=== PATIENT | male | born 1975 | race Asian ===

== ENCOUNTER 2019-06-08 21:27 | Emergency (ER) | payer MEDICAID ==
[~2019-06-08] VITALS: Ht 160 cm; Wt 72.6 kg
[2019-06-08 21:54] VITALS: BP_SYST 124
--- NOTE | 2019-06-08 21:58 | NUR ---
Patient triaged and placed in waiting room. VSS and patient appears in no acute distress at this time. Accompanied by self, awaiting available bed, and MD notified of need for MSE. Patient brought in by self complaining of right eye lid swelling with blurred vision and headache. Pain 9/10. Patient denies any eye discharge, fever or trauma. Pain 9/10. Will give report to accepting RN at time of bed placement.
--- NOTE | 2019-06-08 23:24 | NUR ---
Patient to [facility] for evaluation. Side rails up.
--- NOTE | 2019-06-08 23:42 | NUR ---
Patient brought in complaining of right eye lid swelling and headache x 3 days. Pain 6/10. No other complaints/injuries per patient or as noted. Will continue to monitor.
--- NOTE | 2019-06-09 00:25 | NUR ---
ER Dr. Belcher at bedside examining patient.
[2019-06-09] MEDS ORDERED: IBUPROFEN 600 MG TABLET PO ONE (00:30)
[2019-06-09 00:44] VITALS: BP_SYST 118
--- NOTE | 2019-06-09 00:44 | NUR ---
Patient given written and verbal discharge instructions and verbalizes understanding. ER MD discussed with patient the results and treatment provided. Patient in stable condition. ID arm band removed. Rx of Motrin and Keflex given. Patient educated on pain management and to follow up with PMD. Pain Scale 0/10 Opportunity for questions provided and answered. Medication side effect fact sheet provided.
== END 2019-06-09 00:44 | disposition home or self-care (01) ==
LOC: SED 21:27
DX: H01.001 Unspecified blepharitis right upper eyelid (principal); F17.290 Nicotine dependence, other tobacco product, uncomplicated
CPT/HCPCS: 99283

== ENCOUNTER 2019-06-25 12:07 | Emergency (ER) | payer MEDICAID ==
[~2019-06-25] VITALS: Ht 160 cm; Wt 56.7 kg
[2019-06-25 12:57] VITALS: BP_SYST 112
--- NOTE | 2019-06-25 14:19 | NUR ---
Called pt x 1 to bring him to room , no answer
--- NOTE | 2019-06-25 14:21 | NUR ---
Patient to ER bed 08 to gown for evaluation. Side rails up.
--- NOTE | 2019-06-25 14:23 | NUR ---
Patient arrived via POV, AAOx4, and ambulatory with steady gait. Patient c/c of right eye pain. Patient states years ago, he had surgery. He notes pain to right eyebrow region. Right eye lid swelling present. Patient states headache pain 3-4/10. Patient states no nausea, vomiting, sore throat, or dizziness. No changes in vision or blurred vision. Will continue to follow up and monitor.
[2019-06-25] MEDS ORDERED: NACL 0.9% 1,000 ML IV ONE (14:28)
--- NOTE | 2019-06-25 14:28 | NUR ---
ER at bedside examining patient.
[2019-06-25] MEDS ORDERED: KETOROLAC TROMETHAMINE 30 MG VIAL IVP ONE (14:30)
[2019-06-25 15:28] LABS: BASOPHILS # (AUTO) 0.1 K/uL (0.0-0.2); EOSINOPHILS # (AUTO) 0.3 K/uL (0.0-0.4); EOSINOPHILS % (AUTO) 4.7 % (0.0-4.0); HEMATOCRIT 46.8 % (36-54); HEMOGLOBIN 15.7 g/dL (14.0-18.0); LYMPHOCYTES # (AUTO) 2.5 K/uL (1.0-5.5); MEAN CORPUSCULAR HEMOGLOBIN 30 pg (27-31); MEAN CORPUSCULAR HGB CONC 34 % (32-36); MEAN CORPUSCULAR VOLUME 90 fL (79.0-98.0); MONOCYTES # (AUTO) 0.5 K/uL (0.0-1.0); MONOCYTES % (AUTO) 7.7 % (1.7-9.3); NEUTROPHILS # (AUTO) 2.5 K/uL (1.8-7.7); NEUTROPHILS % (AUTO) 43.6 % (40.0-70.0); PLATELET COUNT (AUTO) 349 K/uL (130-430); RED BLOOD CELL COUNT(AUTO) 5.21 MIL/uL (4.2-6.2); RED CELL DISTRIBUTION WIDTH 13.3 % (9.0-15.0); WHITE BLOOD COUNT (AUTO) 5.8 K/uL (4.8-10.8)
[2019-06-25 15:54] LABS: CALCIUM 8.3 mg/dL (8.4-11.0); CREATININE 0.9 mg/dL (0.55-1.30); POTASSIUM 4.3 mmol/L (3.5-5.1)
[2019-06-25 15:59] LABS: TOTAL BILIRUBIN 0.5 mg/dL (0.0-1.0)
--- NOTE | 2019-06-25 16:05 | NUR ---
spoke to Rylee Madrigal Wharfmaster, stated that pt does not need to be trasnferred. Updated CM regarding pt about having to trasnfer due to higher level of care. Referred to call [facility] and CM will try and find placement as well.
--- NOTE | 2019-06-25 16:14 | NUR ---
Spoke with Kaitlin at [facility] regarding transfer. Per Kaitlin she is trying to see if [facility] or [facility] have an ENT for consult.
--- NOTE | 2019-06-25 17:00 | NUR ---
Patient states he would like to leave, patient states he is concerned regarding his job. Patient aware he needs to follow up with a specialist related to the mass above his right eye, and risk of losing his eye as presented by Dr. Pike. Patient states he would like to leave in time to get to his shift for work tonight.
[2019-06-25 17:07] LABS: BILIRUBIN,URINE NEGATIVE (NEGATIVE); BLOOD, URINE NEGATIVE (NEGATIVE); CLARITY/URINE CLEAR (CLEAR); COLOR,URINE YELLOW (YELLOW); GLUCOSE,URINE NEGATIVE (NEGATIVE); KETONES,URINE NEGATIVE (NEGATIVE); LEUKOCYTE ESTERASE ,URINE NEGATIVE (NEGATIVE); NITRITE, URINE NEGATIVE (NEGATIVE); PROTEIN URINE NEGATIVE (NEGATIVE); UROBILINOGEN,URINE 0.2 (0.2-1.0)
--- NOTE | 2019-06-25 17:44 | NUR ---
Dr. Pike spoke with Dr. Culp via phone. Patient will not need to stay. Encouraged to follow up. I spoke with patient regarding finding a PCP, I showed him the number on the back of his insurance card to call for PCP and appointment, and that he would need to go there first then ask for a referrel to specialist. Patient verbalized understanding. MD to get discharge paperwork together. Will continue to follow up and monitor.
[2019-06-25 18:00] VITALS: BP_SYST 112
--- NOTE | 2019-06-25 18:00 | NUR ---
Patient given written and verbal discharge instructions and verbalizes understanding. ER MD discussed with patient the results and treatment provided. Patient in stable condition. ID arm band removed. IV catheter removed intact and dressing applied, no active bleeding. Rx of Tylenol with Codiene #3, Bactrim DS given. Patient educated on pain management and to follow up with PMD. Pain Scale 2/10. Opportunity for questions provided and answered. Medication side effect fact sheet provided.
== END 2019-06-25 18:00 | disposition home or self-care (01) ==
LOC: SED 12:07
DX: J32.9 Chronic sinusitis, unspecified (principal); J34.89 Other specified disorders of nose and nasal sinuses; R22.0 Localized swelling, mass and lump, head; F17.210 Nicotine dependence, cigarettes, uncomplicated
CPT/HCPCS: 36415; 70486; 80053; 81003; 83605; 85025; 87040; 96374; 99284; J1885; J7030

== ENCOUNTER 2019-07-11 18:46 | Emergency (ER) | payer MEDICAID ==
[~2019-07-11] VITALS: Ht 160 cm; Wt 54.4 kg
[2019-07-11 19:03] VITALS: BP_SYST 108
--- NOTE | 2019-07-12 00:30 | NUR ---
Called pt in, no answer
--- NOTE | 2019-07-12 00:30 | NUR ---
CALLED PT IN X 2, NO ANSWER
--- NOTE | 2019-07-12 00:30 | NUR ---
Patient left without being seen. No further treatment provided. ER MD aware
== END 2019-07-12 00:30 | disposition left against medical advice (07) ==
LOC: SED 18:46
DX: S05.90XA Unspecified injury of unspecified eye and orbit, initial encounter (principal); Z53.21 Procedure and treatment not carried out due to patient leaving prior to being seen by health care provider; X58.XXXA Exposure to other specified factors, initial encounter; Y93.89 Activity, other specified; Y92.89 Other specified places as the place of occurrence of the external cause; Y99.8 Other external cause status

== ENCOUNTER 2019-07-12 08:15 | Emergency (ER) | payer MEDICAID ==
[~2019-07-12] VITALS: Ht 160 cm; Wt 54.4 kg
[2019-07-12 08:27] VITALS: BP_SYST 132
--- NOTE | 2019-07-12 08:30 | NUR ---
Patient to ER bed 06 to gown for evaluation. Side rails up. Report given to SHANKAR Huang.
--- NOTE | 2019-07-12 08:40 | NUR ---
pt arrives from home w/ c/o right eye bump/mass x 1 month. Pt denies any drainage from the right eye. Pt also c/o left neck pain/bump for one week.
--- NOTE | 2019-07-12 09:08 | NUR ---
CARA Willingham at bedside examining patient.
--- NOTE | 2019-07-12 09:48 | NUR ---
Patient transported to radiology via gurney, accompanied by director radiation oncology.
--- NOTE | 2019-07-12 10:05 | NUR ---
pt returned from CT scan
[2019-07-12 11:07] LABS: HEMATOCRIT 45.3 % (36-54); HEMOGLOBIN 15.2 g/dL (14.0-18.0); MEAN CORPUSCULAR HEMOGLOBIN 30 pg (27-31); MEAN CORPUSCULAR HGB CONC 34 % (32-36); MEAN CORPUSCULAR VOLUME 89 fL (79.0-98.0); PLATELET COUNT (AUTO) 253 K/uL (130-430); RED BLOOD CELL COUNT(AUTO) 5.07 MIL/uL (4.2-6.2); RED CELL DISTRIBUTION WIDTH 13.4 % (9.0-15.0)
[2019-07-12 11:20] LABS: CALCIUM 8.4 mg/dL (8.4-11.0); CREATININE 0.86 mg/dL (0.55-1.30); POTASSIUM 3.9 mmol/L (3.5-5.1)
--- NOTE | 2019-07-12 11:20 | NUR ---
spoke w/ Rob Gillis. Unable to accept the pt.
[2019-07-12 11:35] LABS: ALBUMIN 3.6 g/dL (3.4-4.8); TOTAL BILIRUBIN 0.2 mg/dL (0.0-1.0)
[2019-07-12 11:51] LABS: ATYPICAL LYMPHOCYTES % 5 % (0-0); BAND % (MANUAL) 4 % (0-6); BASOPHILS % (MANUAL) 0 % (0-2); EOSINOPHILS % (MANUAL) 6 % (0-7); LYMPHOCYTES % (MANUAL) 46 % (20-46); MONOCYTES % (MANUAL) 6 % (0-11)
--- NOTE | 2019-07-12 12:00 | NUR ---
Urine sample collected and sent to the lab.
--- NOTE | 2019-07-12 12:10 | NUR ---
# 18 gauge angiocath placed to LAC. Use of asceptic technique. Opsite placed over site. Blood return noted. Blood for lab drawn from site. Flushed with 10 cc of normal saline. No evidence of infiltration noted. Patient tolerated well.
[2019-07-12 13:00] LABS: BILIRUBIN,URINE NEGATIVE (NEGATIVE); BLOOD, URINE NEGATIVE (NEGATIVE); CLARITY/URINE CLEAR (CLEAR); COLOR,URINE YELLOW (YELLOW); GLUCOSE,URINE NEGATIVE (NEGATIVE); KETONES,URINE NEGATIVE (NEGATIVE); LEUKOCYTE ESTERASE ,URINE NEGATIVE (NEGATIVE); NITRITE, URINE NEGATIVE (NEGATIVE); PROTEIN URINE NEGATIVE (NEGATIVE); UROBILINOGEN,URINE 0.2 (0.2-1.0)
--- NOTE | 2019-07-12 15:10 | NUR ---
Spoke to Werner miguel [facility] placement center for the third time. Pt still does not have a bed available.
[2019-07-12] MEDS ORDERED: NACL 0.9% 1,000 ML IV ONE ×2 (15:45→17:30)
--- NOTE | 2019-07-12 16:15 | NUR ---
IV fluids currently infusing per MD order.
--- NOTE | 2019-07-12 17:58 | NUR ---
Currently infusing 2nd liter of NS per MD order.
--- NOTE | 2019-07-12 19:06 | NUR ---
pt will be accepted to [facility], bed is pending
--- NOTE | 2019-07-12 19:16 | NUR ---
Care endorsed to Saroj CHAPARRO.
--- NOTE | 2019-07-12 20:11 | NUR ---
Pt updated regarding Transfer to [facility], Pt remains in stable condition
--- NOTE | 2019-07-12 21:30 | NUR ---
PT STATED, I FEEL OK RIGHT NOW. VSS REMAINS IN STABLE CONDITION
--- NOTE | 2019-07-12 23:15 | NUR ---
VSS NO S/S OF ACUTE DISTRESS, AWAITING [facility] BED ASSIGNMENT
--- NOTE | 2019-07-13 00:15 | NUR ---
DR. SINGH BEDSIDE FOR PT UPDATE
--- NOTE | 2019-07-13 01:20 | NUR ---
VSS, asleep on gurney with rails up
--- NOTE | 2019-07-13 02:30 | NUR ---
Pt stated he is feeling a bit better
--- NOTE | 2019-07-13 03:34 | NUR ---
VSS no s/s of acute distress. Resting on gurney rails up
--- NOTE | 2019-07-13 04:41 | NUR ---
Pt remains in stable condition, asleep on gurblount rails up
--- NOTE | 2019-07-13 05:45 | NUR ---
Updated Pt on transfer situation to [facility]; still awaiting bed assignment
--- NOTE | 2019-07-13 06:39 | NUR ---
Spoke to Rylee [facility] Case Manager, at this time no beds available but beds should be able to clear up at shift change.
--- NOTE | 2019-07-13 07:06 | NUR ---
Report received from SHANKAR Fernando for continuation of care.
--- NOTE | 2019-07-13 09:29 | NUR ---
spoke to Nuvia, [facility] case manager, about update on bed. no bed availablity at this time, but nuvia said she would call and follow up with [facility]. Nuvia: [phone]
--- NOTE | 2019-07-13 10:05 | NUR ---
PT FOUND BY SECURITY IN FRONT OF HOSPITAL SMOKING, PT ASKED TO RETURN TO ER MIMI
--- NOTE | 2019-07-13 10:10 | NUR ---
Patient educated that this is a non-smoking facility and that he can not leave the ER to use the bathroom in the ER waiting room. Patient verbalized understanding.
--- NOTE | 2019-07-13 10:46 | NUR ---
still no bed assignment at this time. the coordinator will call back regarding bed assignment. stated they will call within the hour for update.
--- NOTE | 2019-07-13 11:30 | NUR ---
Patient is in bed talking on his phone.
--- NOTE | 2019-07-13 12:30 | NUR ---
Patientis sleeping in bed. No signs or symptoms of distress noted.
--- NOTE | 2019-07-13 14:30 | NUR ---
Patientis sleeping in bed. No signs or symptoms of distress noted.
--- NOTE | 2019-07-13 14:40 | NUR ---
Dr. Cornejo in to talk to patient.
--- NOTE | 2019-07-13 16:19 | NUR ---
[facility] CALLED STATING THEY MAY HAVE AN OPENING FOR PT. WILL CALL BACK FOR CONFIRMATION
--- NOTE | 2019-07-13 16:30 | NUR ---
Patient is on his phone. No signs or symptoms of distress noted.
--- NOTE | 2019-07-13 18:16 | NUR ---
Patient to restroom.
--- NOTE | 2019-07-13 18:39 | NUR ---
Patient back to [facility].
--- NOTE | 2019-07-13 19:14 | NUR ---
Report given to SHANKAR Wilks for continuation of care.
--- NOTE | 2019-07-13 19:16 | NUR ---
Patient report received from SHANKAR Styles. Endorsed to me that patient is awaiting transfer, accepted at [facility], no bed available. Will review orders, results, and notes. Will continue to follow up and monitor.
--- NOTE | 2019-07-13 20:16 | NUR ---
Patient resting comfortably, needs are met at this time. Patient states he is having no pain. Will continue to follow up and monitor.
--- NOTE | 2019-07-14 00:32 | NUR ---
Patient resting comfortably. Needs are met at this time. Patient calm and cooperative. Will continue to follow up and monitor.
--- NOTE | 2019-07-14 02:30 | NUR ---
Patient resting comfortably, needs are met at this time. Encouraged to let us know if needs arise. Will continue to follow up and monitor.
--- NOTE | 2019-07-14 03:07 | NUR ---
Patient report given to SHANKAR Kay.
--- NOTE | 2019-07-14 05:30 | NUR ---
Patient resting quietly. No acute distress noted. Vital signs within normal range.
--- NOTE | 2019-07-14 07:18 | NUR ---
[facility] called regarding pt status. spoke to johnny call transferred to to speak to the attending doc at [facility].
--- NOTE | 2019-07-14 07:28 | NUR ---
Patient resting in bed, denies any SOB or pain. No signs or symptoms of acute distress noted.
--- NOTE | 2019-07-14 07:30 | NUR ---
Patient sitting up in bed, on his phone. Patient denies any SOB or pain. No signs or symptoms of acute distress noted.
--- NOTE | 2019-07-14 08:31 | NUR ---
Spoke to Chase, [employer] Representative, asked if pt is still present in ED and updated CM on pt status. Chase stated he will speak to the coordinator regarding pt transfer because pt has not received bed assignment.
--- NOTE | 2019-07-14 09:30 | NUR ---
Patient resting in bed, eating. Patient denies any SOB or pain. No signs or symptoms of acute distress noted.
--- NOTE | 2019-07-14 09:32 | NUR ---
Spoke to Rylee Pedersen Grip Wrapper, stated they will attempt to try and contact the attending at [facility] and will call back.
--- NOTE | 2019-07-14 11:30 | NUR ---
Patient resting in bed, sleeping. Patient denies any SOB or pain. No signs or symptoms of acute distress noted.
--- NOTE | 2019-07-14 13:33 | NUR ---
Patient sleeping in bed, symmetrical rise and fall of chest. Patient denies any SOB or pain. No signs or symptoms of acute distress noted.
--- NOTE | 2019-07-14 15:00 | NUR ---
Patient resting in bed, denies any SOB or pain.
--- NOTE | 2019-07-14 17:08 | NUR ---
Patient sitting up in bed, talking on the phone, denies any SOB or pain.
--- NOTE | 2019-07-14 17:45 | NUR ---
Patient to be transferred to [facility]. Is being transferred due to higher level of care. Receiving facility has accepting physician and available space. ER physician has signed transfer form. Patient or responsible republican has agreed to transfer and signed form. Patient belongings inventoried and will be sent with patient. Copy of nursing notes, lab reports, EKG, Physicians Orders and X-rays to be sent with patient. Report called to July CHAPARRO at receiving facility. Receiving physician is Dr. Davis. [facility] has been called for transfer. ETA is 45 minutes.
--- NOTE | 2019-07-14 18:22 | NUR ---
[facility] here for transport. All paperwork completed.
[2019-07-14 18:23] VITALS: BP_SYST 100
== END 2019-07-14 18:22 | disposition short-term general hospital (02) ==
LOC: SED 08:15
DX: H02.89 Other specified disorders of eyelid (principal); R22.0 Localized swelling, mass and lump, head
CPT/HCPCS: 36415; 70486; 80053; 81003; 83605; 85007; 85027; 87040; 87086; 93005; 99285; J7030

== ENCOUNTER 2020-01-05 22:43 | Emergency (ER) | payer MEDICAID ==
[~2020-01-05] VITALS: Ht 157.5 cm; Wt 56.7 kg
[2020-01-05 22:47] VITALS: BP_SYST 100
[2020-01-06 02:10] VITALS: BP_SYST 105
== END 2020-01-06 02:10 | disposition home or self-care (01) ==
LOC: SED 22:43
DX: S63.91XA Sprain of unspecified part of right wrist and hand, initial encounter (principal); S29.011A Strain of muscle and tendon of front wall of thorax, initial encounter; V19.9XXA Pedal cyclist (driver) (passenger) injured in unspecified traffic accident, initial encounter; Y93.89 Activity, other specified; Y92.89 Other specified places as the place of occurrence of the external cause; Y99.8 Other external cause status
CPT/HCPCS: 99283

== ENCOUNTER 2021-03-18 19:49 | Emergency (ER) | payer MEDICAID ==
[~2021-03-18] VITALS: Ht 160 cm; Wt 56.7 kg
[2021-03-18 20:43] VITALS: BP_SYST 97
--- NOTE | 2021-03-18 22:00 | NUR ---
Patient to [facility] for evaluation. Side rails up.
--- NOTE | 2021-03-18 22:30 | NUR ---
Dr. Baugh [facility] for pt eval
--- NOTE | 2021-03-18 22:45 | NUR ---
Pt BIB family to ED C/O left eye irritation that started earlier today and getting worse. Symptoms unprovoked. No palliation despite attempts at manual removal of object. Symptoms are constant. there are visual changes.
[2021-03-18] MEDS ORDERED: KETO5DRO OP (23:16)
[2021-03-18] MEDS ORDERED: TORBREX OP (23:16)
[2021-03-18 23:30] VITALS: BP_SYST 97
--- NOTE | 2021-03-18 23:30 | NUR ---
Patient given written and verbal discharge instructions and verbalizes understanding. ER MD discussed with patient the results and treatment provided. Patient in stable condition. ID arm band removed. Rx of Acular and Tobrax given. Patient educated on pain management and to follow up with PMD. Pain Scale 0/10 Opportunity for questions provided and answered. Medication side effect fact sheet provided.
== END 2021-03-18 23:30 | disposition home or self-care (01) ==
LOC: SED 19:49
DX: T15.92XA Foreign body on external eye, part unspecified, left eye, initial encounter (principal); S00.212A Abrasion of left eyelid and periocular area, initial encounter; X58.XXXA Exposure to other specified factors, initial encounter; Y93.89 Activity, other specified; Y92.89 Other specified places as the place of occurrence of the external cause; Y99.8 Other external cause status
CPT/HCPCS: 99284